=== PATIENT | female | born 2000 | race Caucasian/White ===

== ENCOUNTER 2020-06-12 02:13 | Observation (INO) | payer OTHER, SELFPAY ==
[2020-06-12] VITALS (14 sets, daily range): BP systolic 92–120; BP diastolic 60–91; PULSE 76–115; RESP 10–20; TEMP 36.5–37.3; O2SAT 92–100; BMI 20.5
--- NOTE | ~2020-06-12 | CT_ITS ---
EXAMINATION: CT abdomen pelvis w con DATE: 06/12/2020 03:28 INDICATION: Flank pain. TECHNIQUE: Computed tomography (CT) of the abdomen and pelvis was performed with 100 mL Omnipaque 350 intravenous contrast. Automated exposure control and iterative reconstruction technique were employe d. The dose-length product was 198.31 mGy-cm. COMPARISON: None. FINDINGS: The visualized portions of the lung bases demonstrate minimal atelectasis. No pleural effus ion. The heart size is normal. No pericardial effusion. The liver, gallbladder, spleen, pancreas, adr enal glands are normal. There is a delayed and decreased right-sided contrast nephrogram. There is a 1 mm stone in right kidney. There is mild right hydronephrosis and hydroureter. There is a 4 mm stone in distal right ureter. Left kidney demonstrates heterogeneous enhancement. There are no dilated loo ps of bowel. The appendix not visualized. There are no pathologically enlarged lymph nodes. There is a small volume of pelvic ascites. There is mild lumbar spondylosis. IMPRESSION: 1. 4 mm stone in distal right ureter with mild right hydronephrosis and hydroureter. 2. Heterogeneous enhancement of left kidney suspicious for acute pyelonephritis. Reviewed, dictated and finalized at location A. IMPRESSION: 1. 4 mm stone in distal right ureter with mild right hydronephrosis and hydrour eter. 2. Heterogeneous enhancement of left kidney suspicious for acute pyelonephritis .
--- NOTE | ~2020-06-12 | XR_ITS ---
EXAMINATION: XR retrograde pyelo w/stent RT EXAM DATE: 06/12/2020 10:54 INDICATION: Right ureteral stone extraction, stent placement. TECHNIQUE: Fluoroscopy used during XR retrograde pyelo w/stent RT performed by Dr. Jeffry Aguilar MD. The DAP for this procedure was 0.17 mGym2. FINDINGS: The right ureter was cannulated, injected. There is mild right-sided hydroureteronephrosis . A double-J ureteral stent was positioned. Correlate with procedure note. IMPRESSION: Fluoroscopy used during XR retrograde pyelo w/stent RT. Reviewed, dictated and finalized at location A.
--- NOTE | 2020-06-12 02:43 | ED.ABDPAIN ---
HPI - Abdominal Pain General Chief Complaint: Urogenital-Female Stated Complaint: right flank pain Time Seen by Provider: 06/12/20 02:35 History of Present Illness HPI narrative: Patient presents with her mother for severe right flank pain. She was diagnosed in [place] 4 days ago with a kidney stone on the right. She has an appointment later today with the urology group here at [facility]. The pain was overwhelming, and she was throwing up, so they came back in for additional treatment. She has not had any fever. She is otherwise well. Her only surgery is wisdom tooth extraction. She does not smoke cigarette, drink alcohol, or do drugs. 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 MD elicited complaint: abdominal pain and flank pain Pertinent past history: kidney stones Onset (ago): day(s) Pain Consistency: intermittent Location: R flank Severity: severe Relieving factors: nothing Related Data Allergies Allergy/AdvReac Type Severity Reaction Status Date / Time Benzodiazepines AdvReac Drowsy Verified 06/12/20 02:20 Review of Systems Review of Systems: Narrative: CONSTITUTIONAL: Denies fever, chills, or sweats. EYES: Denies visual changes, redness, or discharge. ENT: Denies rhinorrhea, congestion, sore throat, or otalgia. CARDIOVASCULAR: Denies chest pain, palpitations, or edema. RESPIRATORY: Denies cough or dyspnea. GASTROINTESTINAL: She has severe abdominal pain, nausea, vomiting, but not diarrhea. GENITOURINARY: Denies dysuria or hematuria. SKIN: Denies rash or itching. MUSCULOSKELETAL: Denies back pain, joint pain, or myalgia. NEUROLOGIC: Denies headache, numbness, or weakness. All systems reviewed & are unremarkable except as noted in HPI and below PMFSH Surgical History Surgical History History of oral surgery Family History Family History (Updated 09/02/17 @ 14:20 by DOCTOR UNKNOWN) Grandparent Diabetes mellitus Malignant neoplasm of prostate Family history of pancreatic cancer Mother Family history of hypercholesterolemia Hypertension Family history of malignant neoplasm of breast in first degree relative Sibling Hypertension Social History Social History (Updated 06/12/20 @ 02:45 by Abida Olivares MD) Smoking status: Never smoker Alcohol intake: never Substance use: never Exam Narrative: Exam Narrative: GENERAL: Very thin girl crying and holding her right flank. HEAD: Normocephalic, atraumatic. EYES: PERRLA and EOMI. ENT: Nares clear, no rhinorrhea or epistaxis. Mucous membranes moist. NECK: Supple. CHEST: Clear to auscultation. No respiratory distress. HEART: Regular rate and rhythm. No murmur heard. Normal peripheral pulses. ABDOMEN: Soft, nontender, nondistended, normal active bowel sounds. EXTREMITIES: Normal range of motion. No edema. SKIN: Warm, dry, no rash. NEURO: No focal deficits. Alert and oriented x3. PSYCH: Upset . Course Reevaluation(s) Reevaluation #1: Patient has not feeling any better after her multiple doses of pain medication. We will add another liter of IV fluid, Dilaudid 0.5, and Zofran. Will call the urologist recreational director and get her admitted Date: 06/12/20 Time: 04:05 Reevaluation #2: 4:52 AM, patient is a little better with the Toradol her pain is a 5-6 out of 10. She still has some nausea. She would prefer to be admitted and to go home and return to the severe pain that she was in earlier. Her mother agrees. Date: 06/12/20 Time: 04:52 Consultations Consultation #1: Call Dr. Terry, the urologist on-call for admission for the kidney stone. He recommends trying Toradol 60 IV, and if her pain is controlled she can go home and keep her appointment this afternoon. If is not controlled she should be admitted under his name. Date: 06/12/20 Time: 04:06 Vital Signs Vital signs: Vital Signs Temperature 99.2 F 06/12/20 02:17 Pulse Rate 115 H 06/12/20 02:17 Respiratory Rate 20 07
[2020-06-12] MEDS: MORPHINE SULFATE 4 MG/ML INJ IV PUSH (02:48)
[2020-06-12] MEDS: ONDANSETRON INJ 4 MG/2 ML VIAL IV PUSH ×4 (02:48→11:18)
[2020-06-12] MEDS: TAMSULOSIN HCL 0.4 MG CAPSULE PO (02:49)
[2020-06-12] MEDS: SODIUM CHLORIDE 0.9% IV 1,000 ML 999 ML IV CONT ×2 (02:49→04:16)
[2020-06-12 03:05] LABS: Basophils Percent Auto 0.2 % (0.2-1.2); Eosinophils Absolute Auto 0.2 K/mm3 (0-0.3); Eosinophils Percent Auto 1.2 % (0-4.4); Hematocrit 38.3 % (37.0-47.0); Hemoglobin 12.6 g/dL (12.0-15.0); Immature Granulocyte Absolute 0.04 K/mm3 (0.00-0.031); Immature Granulocyte Percent A 0.3 % (0-0.5); Lymphocytes Absolute Auto 2.59 K/mm3 (0.9-3.2); Lymphocytes Percent Auto 20.6 % (18.3-44.2); Mean Corpuscular HGB Conc 32.9 g/dl (32-36); Mean Corpuscular Hemoglobin 29.1 pg (26-34); Mean Corpuscular Volume 88.5 fl (80-100); Mean Platelet Volume 9.2 fl (7.4-10.4); Monocytes Percent Auto 7.8 % (2.6-8.5); Neutrophils Absolute Auto 8.8 K/mm3 (1.3-6.7); Neutrophils Percent Auto 69.9 % (45.5-73.1); Platelet Count Result 282 k/mm3 (150-375); Red Blood Count 4.33 M/mm3 (4.2-5.4); White Blood Count 12.6 K/mm3 (4.5-10.0)
[2020-06-12 03:10] LABS: Alanine Aminotransferase 12 U/L (4-35); Albumin Level 4.1 g/dL (3.7-5.6); Alkaline Phosphatase 65 U/L (45-116); Aspartate Amino Transferase 18 U/L (14-36); Bilirubin,Total 0.6 mg/dL (0.2-1.3); Blood Urea Nitrogen 13 mg/dL (8-21); Calcium 9.4 mg/dL (8.9-10.7); Carbon Dioxide 28 mmol/L (22-30); Chloride 100 mmol/L (98-107); Estimated CRCL calculation 54 ml/min; Estimated Glomerular Filt Rate 58; Glucose 112 mg/dL (65-105); Potassium 3.6 mmol/L (3.4-5.0); Sodium 136 mmol/L (134-143)
[2020-06-12 03:14] LABS: Add Urine Microscopic? YES; Appearance Urine Clear (Clear); Bacteria Urine Trace /hpf; Bilirubin Urine Negative (Negative); Blood Urine 2+ (Negative); Color Urine Yellow (Yellow); Glucose Urine UA Negative (Negative); Ketones Urine Negative (Negative); Leukocyte Esterase Ur Trace LEU/UL (Negative); Mucus Urine Rare /lpf; Nitrate Urine Negative (Negative); Protein Urine Negative (Negative); RBC Urine 51-75 /hpf (0-2); Specific Grav Ur 1.015 (1.001-1.035); Squamous Epithelial Cell Urine Moderate /hpf (Few); Urobilinogen Urine Negative mg/dL (<2.0)
[2020-06-12] MEDS: KETOROLAC 30 MG/ML VIAL (*BKC) 60 MG IV PUSH (04:15)
--- NOTE | 2020-06-12 05:47 | ADMGEN ---
This patient, Haley Ivey, was admitted to 2 Medical Room 251-. Patient/family oriented to hospital policies and general routines including ID bracelet, bed and alarms, visiting hours, pain management, procedures, bathroom and other care routines, personal items, smoking policy, room service/diet, and visiting hours. Valuables list has been completed. Information on how to activate the Rapid Response Team has been discussed. Patient/Family are encouraged to report perceived risks to care and to ask questions if they do not understand what they are told or what they should do.
[2020-06-12] MEDS: DEXTROSE 5%/0.9% SOD CHL 1,000 ML 100 ML IV CONT (06:46)
--- NOTE | 2020-06-12 07:24 | PM.IMHP ---
H&P: HPI History of Present Illness Chief complaint: kidney stone with hydroureter and hydronephrosis Narrative: Haley Ivey is a 19 year old female without prior history, who has had frequent episodes of severe right flank pain, n/v since diagnosed with 4mm right distal ureteral stone while in [place] last week. Denies fever/chills, n/v or hematuriea. Review of Systems Cardiovascular: Cardiovascular: Denies chest pain, Denies lightheadedness, Denies palpitations and Denies dyspnea Respiratory: Respiratory: Denies dyspnea Gastrointestinal: Gastrointestinal: Denies diarrhea, Denies nausea and Denies vomiting Genitourinary: Genitourinary: Denies hematuria and Denies dysuria Endocrine: Endocrine: Denies palpitations PMF Surgical History Surgical History History of oral surgery Family History Family History Grandparent Diabetes mellitus Malignant neoplasm of prostate Family history of pancreatic cancer Mother Family history of hypercholesterolemia Hypertension Family history of malignant neoplasm of breast in first degree relative Sibling Hypertension Social History Social History Smoking status: Never smoker Alcohol intake: never Substance use: never Substance use type: does not use Gender identity (if verbalized by the patient): Female Spiritual care concerns: No Meds Home Medications and Allergies Home Medications Medication Instructions Recorded Confirmed Type doxycycline monohydrate 40 mg PO DAILY 06/12/20 06/12/20 History norethindrone-e.estradiol-iron [Lo 1 tablet PO DAILY 06/12/20 06/12/20 History Loestrin Fe] omeprazole 20 mg PO DAILY 06/12/20 06/12/20 History oxycodone-acetaminophen [Percocet] 5 tablet PO Q4-5H 06/12/20 06/12/20 History prednisone 20 mg PO DAILY 06/12/20 06/12/20 History promethazine 12.5 mg NE Q6H PRN 06/12/20 06/12/20 History spironolactone 100 mg PO DAILY 06/12/20 06/12/20 History sumatriptan succinate 100 mg PO ONCE PRN 06/12/20 06/12/20 History tamsulosin 0.4 mg PO DAILY 06/12/20 06/12/20 History topiramate 50 mg PO BID 06/12/20 06/12/20 History trifarotene [Aklief] 1 applic TOPICAL DAILY 06/12/20 06/12/20 History Allergies Allergy/AdvReac Type Severity Reaction Status Date / Time Benzodiazepines AdvReac Drowsy Verified 06/12/20 02:20 Vital Signs Vital Signs - 24 hr 06/12/20 02:17 06/12/20 05:34 06/12/20 05:56 Temperature 99.2 F 98.2 F 98.1 F Pulse Rate 115 H 89 96 Respiratory Rate 20 18 16 Blood Pressure 120/91 H 114/73 116/77 Pulse Oximetry 100 100 97 H&P: Results Labs Labs: Short CBC 06/12/20 Range/Units 02:47 WBC 12.6 H (4.5-10.0) K/mm3 Hgb 12.6 (12.0-15.0) g/dL Hct 38.3 (37.0-47.0) % Plt Count 282 (150-375) k/mm3 BMP 06/12/20 02:47 Sodium 136 Potassium 3.6 Chloride 100 Carbon Dioxide 28 BUN 13 Creatinine 1.20 H Glucose 112 H Calcium 9.4 Liver Function 06/12/20 Range/Units 02:47 Total Bilirubin 0.6 (0.2-1.3) mg/dL AST 18 (14-36) U/L ALT 12 (4-35) U/L Alkaline Phosphatase 65 (45-116) U/L Albumin 4.1 (3.7-5.6) g/dL Urine 06/12/20 Range/Units 02:53 Urine Color Yellow (Yellow) Urine Appearance Clear (Clear) Urine pH 6.0 (5.0-9.0) Ur Specific [place] 1.015 (1.001-1.035) Urine Protein Negative (Negative) mg/dL Urine Glucose (UA) Negative (Negative) mg/dL Assessment and Plan Assessment and plan (1) Right ureteral stone: Code(s): N20.1 - Calculus of ureter Status: Acute Assessment and Plan: Intractable pain, n/v x6 days with right ureteral stone. Will plan cysto, right ureteroscopy with stone extraction.
--- NOTE | 2020-06-12 08:31 | WPDANESEPPF ---
Anes - Initial Pre Proc Eval Procedure: Operation Date: 06/12/20 12:00 Proposed Procedures p CYSTOSCOPY,RIGHT URETEROSCOPY,STONE EXTRACTION - Shai Ludwig MD Date/Time: 06/12/20 08:31 Surgeon: Syed Terry MD Pre Op Diagnosis: kidney stone with hydroureter and hydronephrosis Patient Data Age: 19 Gender: F Height: 1.6 m Weight: 52.4 kg Last Vital Signs Temp 36.7 C 06/12/20 05:56 Pulse 96 06/12/20 05:56 Resp 16 06/12/20 05:56 BP 116/77 06/12/20 05:56 Pulse Ox 97 06/12/20 05:56 Allergies Allergy/AdvReac Type Severity Reaction Status Date / Time Benzodiazepines AdvReac Drowsy Verified 06/12/20 02:20 Home Medications Medication Instructions Recorded Confirmed Type doxycycline monohydrate 40 mg PO DAILY 06/12/20 06/12/20 History norethindrone-e.estradiol-iron [Lo 1 tablet PO DAILY 06/12/20 06/12/20 History Loestrin Fe] omeprazole 20 mg PO DAILY 06/12/20 06/12/20 History oxycodone-acetaminophen [Percocet] 5 tablet PO Q4-5H 06/12/20 06/12/20 History prednisone 20 mg PO DAILY 06/12/20 06/12/20 History promethazine 12.5 mg IA Q6H PRN 06/12/20 06/12/20 History spironolactone 100 mg PO DAILY 06/12/20 06/12/20 History sumatriptan succinate 100 mg PO ONCE PRN 06/12/20 06/12/20 History tamsulosin 0.4 mg PO DAILY 06/12/20 06/12/20 History topiramate 50 mg PO BID 06/12/20 06/12/20 History trifarotene [Aklief] 1 applic TOPICAL DAILY 06/12/20 06/12/20 History Laboratory Tests 06/12/20 06/12/20 06/12/20 02:47 02:47 02:53 WBC 12.6 K/mm3 H K/mm3 (4.5-10.0) RBC 4.33 M/mm3 M/mm3 (4.2-5.4) Hgb 12.6 g/dL g/dL (12.0-15.0) Hct 38.3 % % (37.0-47.0) MCV 88.5 fl fl (80-100) MCH 29.1 pg pg (26-34) MCHC 32.9 g/dl g/dl (32-36) RDW 13.0 % % (11.5-14.5) Plt Count 282 k/mm3 k/mm3 (150-375) MPV 9.2 fl fl (7.4-10.4) Immature Gran % (Auto) 0.3 % % (0-0.5) Neut % (Auto) 69.9 % % (45.5-73.1) Lymph % (Auto) 20.6 % % (18.3-44.2) Pierce % (Auto) 7.8 % % (2.6-8.5) Eos % (Auto) 1.2 % % (0-4.4) Baso % (Auto) 0.2 % % (0.2-1.2) Lymph # (Auto) 2.59 K/mm3 K/mm3 (0.9-3.2) Pierce # (Auto) 1.0 K/mm3 H K/mm3 (0.1-0.6) Eos # (Auto) 0.2 K/mm3 K/mm3 (0-0.3) Baso # (Auto) 0.0 K/mm3 K/mm3 (0.0-0.1) Abs Immat Gran (auto) 0.04 K/mm3 H K/mm3 (0.00-0.031) Absolute Neuts (auto) 8.8 K/mm3 H K/mm3 (1.3-6.7) Absolute Nucleated RBC 0.0 K/mm3 K/mm3 (0.0-0.012) Nucleated RBC % 0.0 % % (0.0-0.2) Sodium 136 mmol/L mmol/L (134-143) Potassium 3.6 mmol/L mmol/L (3.4-5.0) Chloride 100 mmol/L mmol/L (98-107) Carbon Dioxide 28 mmol/L mmol/L (22-30) BUN 13 mg/dL mg/dL (8-21) Creatinine 1.20 mg/dL H mg/dL (0.7-1.0) Estim Creat Clear Calc 54 ml/min ml/min Estimated GFR 58 L (59 - ) Glucose 112 mg/dL H mg/dL (65-105) Calcium 9.4 mg/dL mg/dL (8.9-10.7) Total Bilirubin 0.6 mg/dL mg/dL (0.2-1.3) AST 18 U/L U/L (14-36) ALT 12 U/L U/L (4-35) Alkaline Phosphatase 65 U/L U/L (45-116) Total Protein 7.0 g/dL g/dL (6.3-8.6) Albumin 4.1 g/dL g/dL (3.7-5.6) Urine Color Yellow (Yellow) Urine Appearance Clear (Clear) Urine pH 6.0 (5.0-9.0) Ur Specific [place] 1.015 (1.001-1.035) Urine Protein Negative mg/dL mg/dL (Negative) Urine Glucose (UA) Negative mg/dL mg/dL (Negative) Urine Ketones Negative mg/dL mg/dL (Negative) Ur Blood (Man) 2+ H (Negative) Urine Nitrate Negative (Negative) Urine Bilirubin Negative (Negative) Urine Urobilinogen Negative mg/dL mg/dL
[2020-06-12] MEDS: LACTATED RINGERS 1,000 ML 30 ML IV CONT (09:40)
[2020-06-12] MEDS: LIDOCAINE HCL 2% GEL UROJET 10 ML PKG MUCOUS MEM (10:38)
--- NOTE | 2020-06-12 10:56 | PM.PROC ---
Procedure Note - Detailed Date of procedure: 06/12/20 Pre-op diagnosis: kidney stone with hydroureter and hydronephrosis Post-op diagnosis: same Procedure performed: Cystoscopy, right ureteroscopy, stone extraction, retrograde pyelogram, stent placement. Description of procedure: She was correctly identified informed consents obtained. She is brought the operating room. She was given general anesthesia. She was placed in dorsal lithotomy position. Pressure points were padded. She was already on preoperative antibiotics. Time-out performed. I perform cystoscopy. This bladder was examined and was normal. She had contrast in the ureter from her previous CT scan. There is hydronephrosis. I placed a guidewire into the kidney. I dilated the ureter with the 810 dilator. I performed ureteroscopy. The stone was encountered. It was extracted intact. I then reperformed ureteroscopy to ensure there is no other stones and the ureter was uninjured. I then did a retrograde pyelogram to again outlined renal anatomy. I placed a 4.8 variable length stent in standard fashion. Proximal coils in the kidney. Distal coil in the bladder. The bladder was drained. She was awakened and transferred to the PACU in condition. Implants: 4.8 variable length stent Anesthesia: GLMA Surgeon: Jeffry Aguilar MD Estimated blood loss (mL): 0 Drains: No Packing: No Pathology: yes (Stone) Complications: No immediate complications Condition: stable Disposition: PACU
[2020-06-12] MEDS: SCOPOLAMINE 1.5 MG PATCH TRANSDERM (11:33)
[2020-06-12] MEDS: PROMETHAZINE HCL 12.5 MG SUPP.RECT RECTAL (13:44)
[2020-06-12] MEDS: OXYBUTYNIN CHLORIDE 5 MG TABLET PO (13:44)
[2020-06-12] MEDS: PHENAZOPYRIDINE HCL 100 MG TABLET 200 MG PO (13:44)
--- NOTE | 2020-06-15 11:53 | P.DS_ITS ---
DS: Admitting Diagnosis Admitting Diagnosis Admitting Diagnosis: Calculus of ureter DS: Discharge Diagnosis Discharge Diagnosis (1) Right ureteral stone: Code(s): N20.1 - Calculus of ureter Status: Acute Assessment and Plan: Underwent uncomplicated ureteroscopy. Will follow up in 1 week for stent removal. DS: Summary Time Spent with Patient Time attestation: Total time spent providing and/or coordinating discharge services: 10 minutes Exam Narrative: Exam Narrative: no acute distress. DS: Data Data Completed and Pending Completed studies during hospitalization: Pending at discharge 06/12/20 10:44 Surgical [PTH] Routine Discharge Plan Discharge Attending physician on discharge: Jeffry Aguilar Consulting providers: Gurinder Presley V. ; Shai Ludwig ; Olman Pedro Discharging Clinician: Jeffry Aguilar Patient Disposition: Home, Self-Care Activity: as tolerated Diet: as tolerated Discharge Instructions: No restrictions Patient Instructions: Antibiotic Form Stand Alone Forms: General Discharge Information Follow-up/Referrals: Syed Terry MD [Physician] - 1 Week (Follow-up with Jeffry stacy and 1 week for stent removal [id number]) Discharge Medications: New hydrocodone-acetaminophen [[place]] 5-325 mg tablet 1 tablet PO Q4H PRN (Reason: pain) Qty: 20 RF: 0 phenazopyridine [Pyridium] 200 mg tablet 200 mg PO TID PRN (Reason: pain) Qty: 30 RF: 0 oxybutynin chloride 5 mg tablet 5 mg PO TID Qty: 60 RF: 0 sulfamethoxazole-trimethoprim [Bactrim] 400-80 mg tablet 1 tablet PO HS Qty: 7 RF: 0 Continued spironolactone 50 mg Tablet 100 mg PO DAILY RF: 0 topiramate 50 mg Tablet 50 mg PO BID RF: 0 doxycycline monohydrate 40 mg Capsule,Ir - Delay Rel,Biphase 40 mg PO DAILY RF: 0 Lo Loestrin Fe 1 mg-10 mcg (24)/10 mcg (2) Tablet 1 tablet PO DAILY RF: 0 sumatriptan succinate 100 mg Tablet 100 mg PO ONCE PRN (Reason: Headache) RF: 0 Aklief 0.005 % Cream 1 applic TOPICAL DAILY RF: 0 prednisone 20 mg Tablet 20 mg PO DAILY RF: 0 omeprazole 20 mg Tablet,Delayed Release (Dr/Ec) 20 mg PO DAILY RF: 0 promethazine 25 mg Suppository 12.5 mg GA Q6H PRN (Reason: Nausea) RF: 0 Discontinued oxycodone-acetaminophen [Percocet] 10-325 mg Tablet 5 tablet PO Q4-5H RF: 0 tamsulosin 0.4 mg Capsule 0.4 mg PO DAILY RF: 0 Date of admission: 06/12/20 04:50 Primary Care Provider: Dm Paredes Admitting Provider: Syed Terry Discharge Date/Time: 06/12/20 15:21 Attending physician on admission: Jeffry Aguilar Condition: Stable
== END 2020-06-12 15:21 | disposition home or self-care (01) ==
LOC: ANHED 03:47 → ANH2MED 08:07
PROVIDERS: Admitting Provider Urology; Emergency Provider Emergency Medicine; PCP Pediatrics; Visit Provider Urology
PROC: (CPT 52352; principal; 2020-06-12 12:00)
DX: N13.2 Hydronephrosis with renal and ureteral calculous obstruction (principal); F41.9 Anxiety disorder, unspecified
CPT/HCPCS: 52332; 52352; 36415; 74177; 74420; 80053; 81001; 81025; 82365; 85025; 88300; 96361; 96365; 96375; 96376; 99285; A9270; C1769; C2617; G0378; J0330; J0696; J1100; J1170; J1885; J2250; J2270; J2405; J2704; J3010; J7030; J7042; J7120; Q9966; Q9967

== ENCOUNTER 2020-11-14 11:22 | Outpatient (CLI) | payer OTHER, SELFPAY ==
--- NOTE | ~2020-11-14 | XR_ITS ---
EXAMINATION: XR abdomen/kub 1V INDICATION: History of kidney stone, left flank pain TECHNIQUE: Supine view of the abdomen is obtained. COMPARISON: CT, 06/12/2020 FINDINGS: No urolithiasis is identified. There are no dilated loops of bowel. There is a moderate vol ume of colonic stool. The visualized osseous structures are unremarkable. IMPRESSION: 1. No urolithiasis identified. Reviewed, dictated and finalized at location A. [employer]
== END 2020-11-14 11:23 | disposition home or self-care (01) ==
LOC: ANHIMG 11:25
PROVIDERS: PCP Physician Assistant; Visit Provider Urology
DX: N20.0 Calculus of kidney (principal)
CPT/HCPCS: 74018

== ENCOUNTER 2021-06-18 10:54 | Emergency (ER) | payer OTHER, SELFPAY ==
[2021-06-18 11:07] VITALS: BP 93/63; PULSE 83; RESP 18; TEMP 37.1; O2SAT 99
--- NOTE | 2021-06-18 11:09 | ED.URI ---
HPI - URI/Sore Throat General Chief Complaint: Upper Respiratory Infection Stated Complaint: Congestion Time Seen by Provider: 06/18/21 11:09 Source: patient and RN notes reviewed Mode of arrival: ambulatory Limitations: no limitations History of Present Illness HPI Narrative: 20-year-old female presents to the [facility] with complaints of stuffy nose, congestion. Was exposed a week ago to someone at work with COVID-19. Patient states that she is fully vaccinated. Had been on Augmentin last week for a sinus infection. Related Data Home Medications Medication Instructions Recorded Confirmed galcanezumab-gnlm [Emgality Pen] 1 mg SUBCUT DIRECTED 06/18/21 06/18/21 norethindrone (contraceptive) 0.5 mg PO DAILY 06/18/21 06/18/21 sertraline 25 mg PO DAILY 06/18/21 06/18/21 Allergies Allergy/AdvReac Type Severity Reaction Status Date / Time Benzodiazepines AdvReac Unknown NAUSEA/VOMI Verified 06/18/21 11:23 TING Review of Systems Review of Systems: All systems reviewed & are unremarkable except as noted in HPI and below Constitutional: Constitutional: Reports no additional constitutional complaints, Denies chills and Denies fever(s) Eyes: Eyes: Reports no additional eye complaints ENT: Reports as per HPI and Reports nasal congestion Cardiovascular: Cardiovascular: Reports no additional cardiovascular complaints and Denies chest pain Respiratory: Respiratory: Reports as per HPI and Reports cough Gastrointestinal: Gastrointestinal: Reports no additional gastrointestinal complaints, Denies abdominal pain, Denies nausea and Denies vomiting Musculoskeletal: Musculoskeletal: Reports no additional musculoskeletal complaints Integumentary/Breasts: Skin/Breast: Reports system reviewed and no additional complaints, except as docu Neurologic: Reports system reviewed and no additional complaints, except as documented Psychiatric: Psychiatric: Reports no additional psychiatric complaints Allergic/Immunologic: Allergic/Immunologic: Reports no additional allergic/immunologic complaints [facility] Past Medical History Medical History Anxiety History of nephrolithotomy with removal of calculi Kidney stones Migraine Right ureteral stone Surgical History Surgical History History of oral surgery Family History Family History Grandparent Diabetes mellitus Malignant neoplasm of prostate Family history of pancreatic cancer Mother Family history of hypercholesterolemia Hypertension Family history of malignant neoplasm of breast in first degree relative Sibling Hypertension Social History Social History Smoking status: Never smoker Alcohol intake: never Substance use: never Substance use type: does not use Gender identity (if verbalized by the patient): Female Spiritual care concerns: No Comments At the time of my signature, I reviewed and agree with the nursing past medical, surgical, social, and family history. There is no relevant family history pertinent to the patient complaint. Exam Const: General: healthy appearing, no acute distress and alert Nutritional Appearance: well nourished Orientation/consciousness: patient oriented x3 Limitations: no limitations HENMT: Head: normal to inspection Ears: external ears normal, TM's normal bilaterally and EAC's normal General nose exam: Normal external nose present, Normal nares present and no nasal discharge noted Face and sinus: normal facial exam Mouth: Yes lip normal and Yes moist mucous membranes Throat: posterior oropharynx normal and uvula midline Eyes: Pupils: Equal, round and reactive pupils present Neck: Neck: normal visual inspection, no lymphadenopathy and no meningeal signs Chest: Chest palpation & inspection: n
[2021-06-19 15:38] LABS: SARS-CoV-2 RNA PCR Negative
== END 2021-06-18 11:45 | disposition home or self-care (01) ==
PROVIDERS: Emergency Provider Nurse Practitioner; PCP Physician Assistant
DX: B34.9 Viral infection, unspecified (principal); F41.9 Anxiety disorder, unspecified
CPT/HCPCS: 87426; 99213; C9803; G0463; U0003; U0005